=== PATIENT | female | born 1985 | race African-American/Black ===

== ENCOUNTER 2016-10-30 17:19 | Emergency (ER) | payer OTHER ==
[2016-10-30] MEDS ORDERED: Cephalexin 250 MG CAP ONE (17:49)
== END 2016-10-30 17:53 | disposition home or self-care (01) ==
LOC: NAV ERS 17:19
DX: N76.2 Acute vulvitis (principal)
CPT/HCPCS: 99282

== ENCOUNTER 2016-12-28 17:37 | Emergency (ER) | payer OTHER ==
[2016-12-28 18:15] LABS: Bilirubin Negative (Negative); Blood, Urine Trace (Negative); Glucose, Urine (Dipstick) Negative (Negative); Leukocyte Negative (Negative); Nitrite Negative (Negative); Protein, Urine (Dipstick) Negative (Neg-Trace)
[2016-12-28 18:19] LABS: Clarity Hazy (Clear); Pregnancy Test - Urine (BHCG) Negative (Negative); Pregu Control Background? CLEAR/WHITE (CLR/WHITE); Pregu Control Bar Appear? YES (CONTROL BAR)
[2016-12-28 18:27] LABS: RBC/HPF 0-3 HPF (0-3); Squamous Epithelial 0-3 HPF (0-3); WBC/HPF 0-3 HPF (0-3)
[2016-12-28 18:28] LABS: Bacteria/HPF 1+ HPF (None Seen); Crystals/HPF 1+ AMORPH URATES HPF (Negative)
[2016-12-31 03:43] LABS: Chlamydia by PCR Not Detected (NotDetected); GC by PCR Not Detected (NotDetected)
== END 2016-12-28 18:44 | disposition home or self-care (01) ==
LOC: NAV ERS 17:37
DX: N76.0 Acute vaginitis (principal)
CPT/HCPCS: 81003; 81015; 81025; 87077; 87086; 87186; 87491; 87591; 99283